=== PATIENT | female | born 2000 | race Caucasian/White ===

== ENCOUNTER 2025-01-22 08:55 | Outpatient (AMB) | payer BC, SELFPAY ==
[2025-01-22 09:14] VITALS: BP 119/78; PULSE 98; RESP 18; TEMP 36.7; O2SAT 98
--- NOTE | 2025-01-22 09:14 | AMB.OBINITIA ---
Vital Signs 01/22/25 09:14 Height 1.6 m Height Method Stated Weight 51.369 kg Weight Measurement Method Standing Scale BMI 20.0 BP 119/78 Blood Pressure Source Automatic Cuff Blood Pressure Location Left Upper Arm Position Sitting Respiration 18 Pulse 98 Pulse Source Monitor Temp 98.1 F Temp Source Oral Pulse Oximetry (%) 98 Oxygen Delivery Method Room Air Allergies/Home Meds Allergies & Medications Allergies No Known Allergies Allergy (Verified 01/22/25 09:16) Medication Reconciliation No Known Home Medications 01/22/25 [History Confirmed 01/22/25] Intake Visit Data Collection New Patient or Established: New Patient (never been to [facility]) Reason for Visit:: INITIAL CARE Seen by Clinical Staff ONLY (RN/MA): No Dial Brusher Required: No Do You Feel Safe at Home: Yes Authorities Contacted: N/A PCP or OBGYN visit in last 3 months: Yes Hx Now: Yes Are you currently on any form of Control: No Last menstrual period: 08/10/24 Pain Present Currently: No Pain Scale Used: Coello-Garcia/Numerical Pain scale:: 0 Smoking Status Smoking Status: Never smoker Questionnaires Covid-19 Vaccine Questionnaire Has patient been vacinated for Covid-19 Have you been vacinated for Covid-19: No PHQ-9 PHQ-2 Over the last 2 weeks, how often have you been bothered by any of the following problems? 1. Little interest or pleasure in doing things: not at all 2. Feeling down, depressed, or hopeless: not at all Total score: 0 PHQ-9 3. Trouble falling or staying asleep, or sleeping too much: Not at all 4. Feeling tired or having little energy: Not at all 5. Poor appetite or overeating: Not at all 6. Feeling bad about yourself - or that you are a failure or have let yourself or your family down: Not at all 7. Trouble concentrating on things, such as reading the newspaper or watching television: Not at all 8. Moving or speaking so slowly that other people could have noticed? - Or the opposite - being so fidgety or restless that you have been moving around a lot more than usual: not at all 9. Thoughts that you would be better off or of hurting yourself in some way: Not at all Total score: 0 Source: Developed by Drs. Joseph Li, Sintia Navarrete, Kevin Ugalde and colleagues, with an educational roger from [employer]. Depression screen completed yes Social History Living Situation History Lives With: Family Housing: House Tobacco History Smoking Status: Never smoker Second Hand Smoke Exposure: No Alcohol History Alcohol Intake: Never Domestic Abuse History Do You Feel Safe at Home: Yes History of Present Illness HPI Narrative 24-year-old 3 para 2 for OBI. Patient's last period was August 06, 2024. EDC is 6 May 13, 2025. Patient is sure of her dates. Patient has had 2 live births. Both of uncomplicated. Her biggest baby weighed 8 pounds 14 at 38 weeks. Denies social habits. Denies surgery. Denies chronic illness. Patient reports good movement. Denies leaking, bleeding, cramps. Her and the father of the baby are happy. No interval complaints or discomforts at this time. OB Initial Visit OB Flowsheet OB Flowsheet Initial Weight: Not Recorded Date <del>?</del> EGA Weight BP Alb Glu CTX Pres Fundal ht FHR Mov Dilation Station Effacement Hx Notes Visit Note 01/22/25 <del>?</del> 24w 1d 51.369 kg 119/78 absent unknown 24 145 active 24-year-old 3 para 2 for OBI. Last period August 06, 2024. EDC May 13, 2025. Patient denies complaints of labor. Denies leaking, denies bleeding, denies contractions. Patient is taking vitamins. OB panel today with hemoglobin A1c and third trimester labs. Schedule with Dr. Titus for anatomy scan. Continue prenatals. Discussed labor precautions. Increase fluids. Return in 4 weeks OB OB panel today with hemoglobin A1c and third trimester labs. Schedule with Dr. Titus for anatomy scan. Continue prenatals. Discussed labor precautions. Increase fluids. Return in 4 weeks OB, NIPT and carrier screen Menstrual History Menstrual reliability: definite Flow: normal Menstrual regularity: regular Monthly: Yes Age at menarche: 12 On control pills at conception: No Associated symptoms (LMP): Reports nausea, vomiting, fatigue and breast tenderness OB History : 1 Infection History & Risk Evaluation History of STDs: none Genetic Screening & History Genetic Screening/Teratology Counseling - Includes patient, baby's father, or anyone in either family with: 1. Patient's age 35 years or older as of estimated date of delivery: No 2. Thalassemia (Luxembourger, Romanian, Mediterranean, or Background); MCV less than 80: No 3. Neural Tube Defect (Meningomyelocele, Spina Bifida, or Anencephaly): No 4. Congenital Heart Defect: No 5. Down Syndrome: No 6. Edison-Sachs (Ashkenazi Latter-Day, Cajun, Finnish Uruguayan): No 7. Carrie Disease (Ashkenazi Latter-Day): No 8. Familial Dysautonomia (Ashkenazi Latter-Day): No 9. Sickle Cell Disease or Trait (): No 10. Hemophilia or other blood disorders: No 11. Muscular Dystrophy: No 12. Cystic Fibrosis: No 13. Coamo's Chorea: No 14. Mental Retardation/Autism: No 15. Other inherited genetic or chromosomal disorder: No 16. Maternal Metabolic Disorder (EG,TYPE 1 Diabetes, PKU): No 17. Patient or baby's father had a child with defects not listed above: No 18. Recurrent loss or a stillbirth: No 19. Medications (including supplements, vitamins, herbs or otc drugs)/illicit/recreational drugs/alcohol since last menstrual period: No 20. Any other: No Infection History 1. Live with someone with TB or exposed to TB: No 2. Rash or viral illness since last menstrual period: No 3. Hepatitis B,C: No Other (see comments) Source: [employer] Review of Systems Review of Systems Systems Reviewed: All systems reviewed, normal except as documented Constitutional Constitutional: Reports fatigue Gastrointestinal Gastrointestinal: Reports nausea and Reports vomiting Endocrine Endocrine: Reports fatigue Exam General Limitations: no limitations General Appearance: alert, in no apparent distress, comfortable, cooperative, healthy appearing, well developed and well groomed Head Head exam: atraumatic, normocephalic and normal inspection Chest Chest inspection: Present normal inspection and symmetric chest wall rise Resp Respiratory exam: Present normal lung sounds bilaterally Card Cardiovascular exam: Present regular rate, normal rhythm and normal heart sounds Abdominal Abdominal exam: Present soft and normal bowel sounds Psych Psychiatric exam: Present normal affect and normal mood Office Procedures OB Clinic LOC & Office Proc's Nursing/Assessment Patient Status: Initial/New Patient OB Clinic Nursing Assessment: Medication Reconciliation, Update PMH in EMR and Vital Signs OB Clinic Coordination of Care: Complex Care and Chronic Disease 1-5, Consent,records obtained, informed consent, Education Simp Pt/Fam, Lab and Imaging orders, Results/Orders obtained and Staff clarify orders Special Needs: Heart tones New Patient Charge New Patient Point Assignment: [id number] New Patient Point Charge: SUPERVISOR [employer] Level 4 ([id number]) Assessment & Plan Diagnosis / Problem List (1) Encounter for supervision of high risk in second trimester, antepartum: Status: Acute Plan Continue vitamins. OB panel with hemoglobin A1c, NIPT and carrier screens and 1 hour GTT today. Schedule with Dr. Titus for anatomy scan. Discussed labor precautions. Increase fluids. Return in 4 weeks OB check Additional Plan Follow Up: 4 Weeks (obc)
== END 2025-01-22 09:45 | disposition home or self-care (01) ==
LOC: HODSOBC 08:55
PROVIDERS: Supervising Provider Advanced Practice Midwife; Visit Provider Advanced Practice Midwife
DX: O09.92 Supervision of high risk pregnancy, unspecified, second trimester (principal); Z3A.24 24 weeks gestation of pregnancy
CPT/HCPCS: 99204; G0463

== ENCOUNTER 2025-02-19 08:53 | Outpatient (AMB) | payer BC, SELFPAY ==
[2025-02-19 09:08] VITALS: BP 110/70; PULSE 77; RESP 16; TEMP 36.7; O2SAT 98; BMI 20.9
--- NOTE | 2025-02-19 09:08 | AMB.OBVISIT ---
Vital Signs 02/19/25 09:08 Height 1.6 m Height Method Stated Weight 53.694 kg Weight Measurement Method Standing Scale BMI 20.9 BP 110/70 Blood Pressure Source Automatic Cuff Blood Pressure Location Left Upper Arm Position Sitting Respiration 16 Pulse 77 Pulse Source Monitor Temp 98.1 F Temp Source Oral Pulse Oximetry (%) 98 Oxygen Delivery Method Room Air Allergies/Home Meds Allergies & Medications Allergies No Known Allergies Allergy (Verified 02/19/25 09:09) Medication Reconciliation No Known Home Medications 01/22/25 [History Confirmed 02/19/25] Intake Visit Data Collection New Patient or Established: Established Patient (seen at [facility] within 3 years) Reason for Visit:: CARE Seen by Clinical Staff ONLY (RN/MA): No Boarding House Manager Required: No Do You Feel Safe at Home: Yes Authorities Contacted: N/A PCP or OBGYN visit in last 3 months: Yes Hx Now: Yes Are you currently on any form of Control: No Pain Present Currently: No Pain Scale Used: Coello-Garcia/Numerical Pain scale:: 0 Smoking Status Smoking Status: Never smoker Questionnaires Covid-19 Vaccine Questionnaire Has patient been vacinated for Covid-19 Have you been vacinated for Covid-19: No PHQ-9 PHQ-2 Over the last 2 weeks, how often have you been bothered by any of the following problems? 1. Little interest or pleasure in doing things: not at all 2. Feeling down, depressed, or hopeless: not at all Total score: 0 PHQ-9 3. Trouble falling or staying asleep, or sleeping too much: Not at all 4. Feeling tired or having little energy: Not at all 5. Poor appetite or overeating: Not at all 6. Feeling bad about yourself - or that you are a failure or have let yourself or your family down: Not at all 7. Trouble concentrating on things, such as reading the newspaper or watching television: Not at all 8. Moving or speaking so slowly that other people could have noticed? - Or the opposite - being so fidgety or restless that you have been moving around a lot more than usual: not at all 9. Thoughts that you would be better off or of hurting yourself in some way: Not at all Total score: 0 Source: Developed by Drs. Joseph Li, Sintia Navarrete, Kevin Ugalde and colleagues, with an educational roger from [employer]. Depression screen completed yes Social History Living Situation History Lives With: Family Housing: House Tobacco History Smoking Status: Never smoker Second Hand Smoke Exposure: No Alcohol History Alcohol Intake: Never Domestic Abuse History Do You Feel Safe at Home: Yes Care OB Visit Log OB Flowsheet Initial Weight: Not Recorded Date <del>?</del> EGA Weight BP Alb Glu CTX Pres Fundal ht FHR Mov Dilation Station Effacement Hx Notes Visit Note 01/22/25 <del>?</del> 24w 1d 51.369 kg 119/78 absent unknown 24 145 active 24-year-old 3 para 2 for OBI. Last period August 06, 2024. EDC May 13, 2025. Patient denies complaints of labor. Denies leaking, denies bleeding, denies contractions. Patient is taking vitamins. OB panel today with hemoglobin A1c and third trimester labs. Schedule with Dr. Titus for anatomy scan. Continue prenatals. Discussed labor precautions. Increase fluids. Return in 4 weeks OB OB panel today with hemoglobin A1c and third trimester labs. Schedule with Dr. Titus for anatomy scan. Continue prenatals. Discussed labor precautions. Increase fluids. Return in 4 weeks OB, NIPT and carrier screen 02/19/25 <del>?</del> 28w 1d 53.694 kg 110/70 absent unknown 27 145 active Reports good movement. Denies leaking, bleeding, contractions. Maternal- medicine sono is pending. No OB complaints Continue follow-up with maternal- medicine. Discussed labs and normal GTT. Patient is aware that she is having a girl. Discussed labor precautions. Return in 3 weeks OB ARASH Calculator Estimated Delivery Date Method Current WG Current Estimate 05/13/25 LMP (Certain) 28w 1d Notes Visit Date: 02/19/25 Last Updated by: Ida Nielsen CNM 02/05: O+,abs-, rpr;;nr, rub imm, hbsag-, hiv-., HC-, GC/Ct12/26105, NIPT-/wjmwMJT-RM-Q3: 4.7, 1 hr gtt: 122 Visit Date: 01/22/25 Last Updated by: Ida Nielsen, ALESSANDRO 24 yo . LMP: 08/06/24. EDC: 05/13/25 Office Procedures OBC Clinic LOC & Office Proc's Nursing/Assessment Patient Status: Established Patient OB Clinic Nursing Assessment: Medication Reconciliation, Update PMH in EMR and Vital Signs OB Clinic Coordination of Care: Complex Care and Chronic Disease 1-5, Consent,records obtained, informed consent, Education Simp Pt/Fam, 1 Ins Authorization, Lab and Imaging orders, Results/Orders obtained and Staff clarify orders Special Needs: Heart tones Established Patient Charge Established Patient Point Assignment: 150 Established Patient Point Charge: EP Level 4 (120-155) Assessment & Plan Diagnosis / Problem List (1) Encounter for supervision of high risk in third trimester, antepartum: Status: Acute Plan Discussed labor precautions. Follow-up on [facility] sono. Continue prenatals. Increase fluids. Return in 3 weeks OB check Additional Plan Follow Up: 3 Weeks (obc)
== END 2025-02-19 09:28 | disposition home or self-care (01) ==
PROVIDERS: Supervising Provider Advanced Practice Midwife; Visit Provider Advanced Practice Midwife
DX: O09.93 Supervision of high risk pregnancy, unspecified, third trimester (principal); Z3A.28 28 weeks gestation of pregnancy
CPT/HCPCS: 99214; G0463

== ENCOUNTER 2025-02-23 15:52 | Observation (INO) | payer BC, SELFPAY ==
[2025-02-23] VITALS (28 sets, daily range): BP systolic 113–124; BP diastolic 57–76; PULSE 95–110; RESP 19–99; TEMP 36.8; O2SAT 82–100; BMI 20.4
[2025-02-23 17:23] LABS: FFN Specimen Descripton Clr Colrless Aqueous; Fetal Fibronectin Negative (Negative)
[2025-02-23] MEDS: ACETAMINOPHEN 325 MG TABLET 650 MG PO (18:14)
[2025-02-23 18:18] LABS: Collection Type, Urine Clean Catch
[2025-02-23 18:32] LABS: Bilirubin,Urine Negative (Negative); Blood,Urine 1+ (Negative); Budding Yeast,Urine Present; Clarity,Urine Clear (Clear/Hazy); Color,Urine Lt-Yellow (Lt Yel-Yel); Glucose, Urine Negative (Negative); Ketones,Urine Negative (Negative); Leukocyte Esterase,Urine Negative (Negative); Nitrite,Urine Negative (Negative); PH,Urine 6.5 (5.0-7.0); Protein,Urine Negative (Neg - Trace); RBC,Urine 52 /hpf (0-3); Specific Gravity,Urine 1.014 (1.001-1.035); Squamous Epithelial Cell,Urine < 1 /hpf (0-5); Urobilinogen,Urine Negative mg/dL (0.0-1.0); WBC,Urine 2 /hpf (0-5)
== END 2025-02-23 18:54 | disposition home or self-care (01) ==
PROVIDERS: Admitting Provider Obstetrics & Gynecology; PCP Family Medicine; Visit Provider Obstetrics & Gynecology
DX: O26.893 Other specified pregnancy related conditions, third trimester (principal); Z3A.29 29 weeks gestation of pregnancy; R52 Pain, unspecified
CPT/HCPCS: 59025; 59899; 81001; 82731; A9270

== ENCOUNTER 2025-03-05 14:50 | Outpatient (AMB) | payer BC, SELFPAY ==
[2025-03-05 14:57] VITALS: BP 103/66; PULSE 93; RESP 18; TEMP 36.4; O2SAT 98; BMI 20.5
--- NOTE | 2025-03-05 14:57 | OBCLNT_ITS ---
Vital Signs 03/05/25 14:57 Height 1.63 m Height Method Stated Weight 54.148 kg Weight Measurement Method Standing Scale BMI 20.5 BP 103/66 Blood Pressure Source Automatic Cuff Blood Pressure Location Left Upper Arm Position Sitting Respiration 18 Pulse 93 Pulse Source Monitor Temp 97.6 F Temp Source Oral Pulse Oximetry (%) 98 Oxygen Delivery Method Room Air Allergies/Home Meds Allergies & Medications Allergies No Known Allergies Allergy (Verified 03/05/25 14:59) Medication Reconciliation clotrimazole 1 % vaginal cream (Gyne-Lotrimin 7) 1 applic .Route QHSPRN #45 grams 02/24/25 [Rx Confirmed 03/05/25] Intake Visit Data Collection New Patient or Established: Established Patient (seen at [facility] within 3 years) Reason for Visit:: CARE Seen by Clinical Staff ONLY (RN/MA): No Cold Rolling Supervisor Required: No Do You Feel Safe at Home: Yes Authorities Contacted: N/A PCP or OBGYN visit in last 3 months: Yes Hx Now: Yes Are you currently on any form of Control: No Pain Present Currently: No Pain Scale Used: Coello-Garcia/Numerical Pain scale:: 0 Smoking Status Smoking Status: Never smoker Immunizations Flu Vaccine in the Last 12 Months: No Flu Vaccine Exclusion Criteria: Refused by Patient Questionnaires Covid-19 Vaccine Questionnaire Has patient been vacinated for Covid-19 Have you been vacinated for Covid-19: No PHQ-9 PHQ-2 Over the last 2 weeks, how often have you been bothered by any of the following problems? 1. Little interest or pleasure in doing things: not at all 2. Feeling down, depressed, or hopeless: not at all Total score: 0 PHQ-9 3. Trouble falling or staying asleep, or sleeping too much: Not at all 4. Feeling tired or having little energy: Not at all 5. Poor appetite or overeating: Not at all 6. Feeling bad about yourself - or that you are a failure or have let yourself or your family down: Not at all 7. Trouble concentrating on things, such as reading the newspaper or watching television: Not at all 8. Moving or speaking so slowly that other people could have noticed? - Or the opposite - being so fidgety or restless that you have been moving around a lot more than usual: not at all 9. Thoughts that you would be better off or of hurting yourself in some way: Not at all Total score: 0 Source: Developed by Drs. Joseph Li, Sintia Navarrete, Kevin Ugalde and colleagues, with an educational roger from [employer]. Depression screen completed yes Social History Living Situation History Lives With: Family Housing: House Tobacco History Smoking Status: Never smoker Second Hand Smoke Exposure: No Alcohol History Alcohol Intake: Never Domestic Abuse History Do You Feel Safe at Home: Yes Care OB Visit Log OB Flowsheet Initial Weight: Not Recorded Date -?-?-?-?-?-?-?-?-?-?-?-?- EGA Weight BP Alb Glu CTX Pres Fundal ht FHR Mov Dilation Station Effaceme nt Hx Notes Visit Note 01/22/25 -?-?-?-?-?-?-?-?-?-?-?-?- 24w 1d 51.369 kg 119/78 absent unknown 24 145 active 24-year-old 3 para 2 for OBI. Last period August 06, 2024. EDC May 13, 2025. Patient denies complaints of labor. Denies leaking, denies bleeding, denies contractions. Patient is taking vitamins. OB panel today with hemoglobin A1c and third trimester labs. Schedule with Dr. Titus for anatomy scan. Continue prenatals. Discussed labor precautions. Increase fluids. Return in 4 weeks OB OB panel today with hemoglob in A1c and third trimester labs. Schedule with Dr. Titus for anatomy scan. Continue prenatals. Discussed labor precautions. Increase fluids. Return in 4 weeks OB, NIPT and carrier screen 02/19/25 -?-?-?-?-?-?-?-?-?-?-?-?- 28w 1d 53.694 kg 110/70 absent unknown 27 145 active Reports good movement. Denies leaking, bleeding, contractions. Maternal- medicine sono is pending. No OB complaints Co ntinue follow-up with maternal- medicine. Discussed labs and normal GTT. Patient is aware that she is having a girl. Discussed labor precautions. Return in 3 weeks OB 03/05/25 -?-?-?-?-?-?-?-?-?-?-?-?- 30w 1d 54.148 kg 103/66 absent unknown 29 135 active Reports good movement. Denies leaking, bleeding, cramps Unable to get ultrasound with maternal- medicine due to insurance. Patient will schedule appointment at [facility] for ultrasound. Declined Tdap and flu today. Discussed labor precautions. Return in 2 weeks OB check ARASH Calculator Estimated Delivery Date Method Current WG Current Estimate 05/13/25 LMP (Certain) 30w 1d Notes Visit Date: 02/19/25 Last Updated by: Ida Nielsen CNM 02/05: O+,abs-, rpr;;nr, rub imm, hbsag-, hiv-., HC-, GC/Ct12/53042, NIPT-/bgdaVJH-PQ-X3: 4.7, 1 hr gtt: 122 Visit Date: 01/22/25 Last Updated by: Ida Nielsen CNM 24 yo . LMP: 08/06/24. EDC: 05/13/25 Office Procedures OBC Clinic LOC & Office Proc's Nursing/Assessment Patient Status: Established Patient OB Clinic Nursing Assessment: Medication Reconciliation, Update PMH in EMR and Vital Signs OB Clinic Coordination of Care: Complex Care and Chronic Disease 1-5, Consent,records obtained, informed consent, Education Simp Pt/Fam, Lab and Imaging orders, Results/Orders obtained and Staff clarify orders Special Needs: Heart tones Established Patient Charge Established Patient Point Assignment: 135 Established Patient Point Charge: EP Level 4 (120-155) Assessment & Plan Diagnosis / Problem List (1) Encounter for supervision of high risk in third trimester, antepartum: Status: Acute Plan Declined Tdap and flu. Discussed labor precautions. Schedule appointment at [facility] imaging. Return in 2 weeks OB to. Additional Plan Follow Up: 2 Weeks (obc)
== END 2025-03-05 15:19 | disposition home or self-care (01) ==
LOC: HODSOBC 14:50
PROVIDERS: Supervising Provider Advanced Practice Midwife; Visit Provider Advanced Practice Midwife
DX: O09.93 Supervision of high risk pregnancy, unspecified, third trimester (principal); Z3A.30 30 weeks gestation of pregnancy; Z28.21 Immunization not carried out because of patient refusal
CPT/HCPCS: 99214; G0463

== ENCOUNTER 2025-03-26 14:45 | Outpatient (AMB) | payer BC, SELFPAY ==
[2025-03-26 14:59] VITALS: BP 114/67; PULSE 102; RESP 18; TEMP 36.2; O2SAT 98; BMI 20.8
--- NOTE | 2025-03-26 14:59 | OBCLNT_ITS ---
Vital Signs 03/26/25 14:59 Height 1.63 m Height Method Stated Weight 55.338 kg Weight Measurement Method Standing Scale BMI 20.8 BP 114/67 Blood Pressure Source Automatic Cuff Blood Pressure Location Left Upper Arm Position Sitting Respiration 18 Pulse 102 H Pulse Source Monitor Temp 97.2 F Temp Source Oral Pulse Oximetry (%) 98 Oxygen Delivery Method Room Air Allergies/Home Meds Allergies & Medications Allergies No Known Allergies Allergy (Verified 03/26/25 15:00) Medication Reconciliation clotrimazole 1 % vaginal cream (Gyne-Lotrimin 7) 1 applic .Route QHSPRN #45 grams 02/24/25 [Rx Confirmed 03/26/25] Immunizations Immunizations Flu Vaccine in the Last 12 Months: No Flu Vaccine Exclusion Criteria: No Exclusion Criteria Care OB Visit Log OB Flowsheet Initial Weight: Not Recorded Date -?-?-?-?-?-?-?-?-?-?-?-?- EGA Weight BP Alb Glu CTX Pres Fundal ht FHR Mov Dilation Station Effacement Hx Notes Visit Note 01/22/25 -?-?-?-?-?-?-?-?-?-?-?-?- 24w 1d 51.369 kg 119/78 absent unknown 24 145 active 24-year-old 3 para 2 for OBI. Last period August 06, 2024. EDC May 13, 2025. Patient denies complaints of labor. Denies leaking, denies bleeding, denies contractions. Patient is taking vitamins. OB panel today with hemoglobin A1c and third trimester labs. Schedule with Dr. Titus for anatomy scan. Continue prenatals. Discussed labor precautions. Increase fluids. Return in 4 weeks OB OB panel today with hemoglob in A1c and third trimester labs. Schedule with Dr. Titus for anatomy scan. Continue prenatals. Discussed labor precautions. Increase fluids. Return in 4 weeks OB, NIPT and carrier screen 02/19/25 -?-?-?-?-?-?-?-?-?-?-?-?- 28w 1d 53.694 kg 110/70 absent unknown 27 145 active Reports good movement. Denies leaking, bleeding, contractions. Maternal- medicine sono is pending. No OB complaints Co ntinue follow-up with maternal- medicine. Discussed labs and normal GTT. Patient is aware that she is having a girl. Discussed labor precautions. Return in 3 weeks OB 03/05/25 -?-?-?-?-?-?-?-?-?-?-?-?- 30w 1d 54.148 kg 103/66 absent unknown 29 135 active Reports good movement. Denies leaking, bleeding, cramps Unable to get ultrasound with maternal- medicine due to insurance. Patient will schedule appointment at [facility] for ultrasound. Declined Tdap and flu today. Discussed labor precautions. Return in 2 weeks OB check 03/26/25 -?-?-?-?-?-?-?-?-?-?-?-?- 33w 1d 55.338 kg 114/67 absent unknown 32 140 active She reports good movement. Denies leaking, bleeding, contractions. Ultrasound was done at [facility] Call for [facility] nty results. Discussed labor precautions. Kick count twice a day. Return in 2 weeks OB check ARASH Calculator Estimated Delivery Date Method Current WG Current Estimate 05/13/25 LMP (Certain) 33w 1d Other Estimates 05/05/25 Ultrasound #1 34w 2d 05/13/25 Manual 33w 1d final arash: . EFW:45% Notes Visit Date: 02/19/25 Last Updated by: Ida Nielsen CNM 02/05: O+,abs-, rpr;;nr, rub imm, hbsag-, hiv-., HC-, GC/Ct12/02741, NIPT-/zwvaAXE-TL-P6: 4.7, 1 hr gtt: 122 Visit Date: 01/22/25 Last Updated by: Ida Nielsen CNM 24 yo . LMP: 08/06/24. EDC: 05/13/25 Office Procedures OBC Clinic LOC & Office Proc's Nursing/Assessment Patient Status: Established Patient OB Clinic Nursing Assessment: Medication Reconciliation, Update PMH in EMR and Vital Signs OB Clinic Coordination of Care: Consent,records obtained, informed consent, Education Simp Pt/Fam, Lab and Imaging orders, Results/Orders obtained and Staff clarify orders Special Needs: Heart tones Established Patient Charge Established Patient Point Assignment: 110 Established Patient Point Charge: EP Level 3 (80-115) Assessment & Plan Diagnosis / Problem List (1) Encounter for supervision of high risk in third trimester, antepartum: Status: Acute Plan Discussed labor precautions. Kick count twice a day. Call for sono results. Return in 2 weeks OB check Additional Plan Follow Up: 2 Weeks (obc)
== END 2025-03-26 15:17 | disposition home or self-care (01) ==
LOC: HODSOBC 14:45
PROVIDERS: Supervising Provider Advanced Practice Midwife; Visit Provider Advanced Practice Midwife
DX: O09.93 Supervision of high risk pregnancy, unspecified, third trimester (principal); Z3A.33 33 weeks gestation of pregnancy
CPT/HCPCS: 99213; G0463

== ENCOUNTER 2025-04-05 05:58 | Observation (INO) | payer BC, SELFPAY ==
[2025-04-05] VITALS (10 sets, daily range): BP systolic 94; BP diastolic 52–54; PULSE 100–118; RESP 16–100; TEMP 36.7; O2SAT 97–99; BMI 21.8
== END 2025-04-05 07:05 | disposition home or self-care (01) ==
PROVIDERS: Admitting Provider Obstetrics & Gynecology; Visit Provider Obstetrics & Gynecology
DX: Z34.90 Encounter for supervision of normal pregnancy, unspecified, unspecified trimester (principal); Z3A.00 Weeks of gestation of pregnancy not specified
CPT/HCPCS: 59025; 59899

== ENCOUNTER 2025-04-07 11:10 | Observation (INO) | payer BC, SELFPAY ==
[2025-04-07 11:25] VITALS: BP 112/67; PULSE 110
[2025-04-07 11:35] LABS: Collection Type, Urine Clean Catch
[2025-04-07 11:59] VITALS: BP 112/67; PULSE 100; RESP 18; RESP 99; TEMP 36.7; BMI 20.9
[2025-04-07 12:30] LABS: Bacteria,Urine Rare; Bilirubin,Urine Negative (Negative); Blood,Urine Negative (Negative); Clarity,Urine Clear (Clear/Hazy); Color,Urine Lt-Yellow (Lt Yel-Yel); Glucose, Urine Negative (Negative); Ketones,Urine 2+ (Negative); Leukocyte Esterase,Urine Negative (Negative); Nitrite,Urine Negative (Negative); PH,Urine 7.0 (5.0-7.0); Protein,Urine Negative (Neg - Trace); RBC,Urine 1 /hpf (0-3); Specific Gravity,Urine 1.010 (1.001-1.035); Squamous Epithelial Cell,Urine 5 /hpf (0-5); Urobilinogen,Urine Negative mg/dL (0.0-1.0); WBC,Urine 1 /hpf (0-5)
[2025-04-07] MEDS: BETAMET ACET/BETAMET NA PH (Celestone) 6 MG/ML VIAL 12 MG IM (12:51)
== END 2025-04-07 12:55 | disposition home or self-care (01) ==
PROVIDERS: Admitting Provider Obstetrics & Gynecology; Visit Provider Obstetrics & Gynecology
DX: O26.893 Other specified pregnancy related conditions, third trimester (principal); M54.50 Low back pain, unspecified; R10.30 Lower abdominal pain, unspecified; Z3A.35 35 weeks gestation of pregnancy
CPT/HCPCS: 59025; 59899; 81001; 96372; J0702

== ENCOUNTER 2025-04-09 13:04 | Outpatient (AMB) | payer BC, SELFPAY ==
--- NOTE | 2025-04-09 13:28 | AMB.OBPNC ---
Vital Signs 04/09/25 13:29 Height 1.63 m Height Method Stated Weight 55.962 kg Weight Measurement Method Standing Scale BMI 21.0 BP 109/67 Blood Pressure Source Automatic Cuff Blood Pressure Location Left Upper Arm Position Sitting Respiration 18 Pulse 117 H Pulse Source Monitor Temp 98.2 F Temp Source Oral Pulse Oximetry (%) 98 Oxygen Delivery Method Room Air Allergies/Home Meds Allergies & Medications Allergies No Known Allergies Allergy (Verified 04/09/25 13:29) Medication Reconciliation vits no.130-ferrous fum 27 mg iron-folic acid 800 mcg tablet ( Vitamin) 1 tab PO QDAY 04/05/25 [History Confirmed 04/09/25] Immunizations Immunizations Flu Vaccine in the Last 12 Months: Yes Flu Vaccine Exclusion Criteria: Already Received Care OB Visit Log OB Flowsheet Initial Weight: Not Recorded Date <del>?</del> EGA Weight BP Alb Glu CTX Pres Fundal ht FHR Mov Dilation Station Effacement Hx Notes Visit Note 01/22/25 <del>?</del> 24w 1d 51.369 kg 119/78 absent unknown 24 145 active 24-year-old 3 para 2 for OBI. Last period August 06, 2024. EDC May 13, 2025. Patient denies complaints of labor. Denies leaking, denies bleeding, denies contractions. Patient is taking vitamins. OB panel today with hemoglobin A1c and third trimester labs. Schedule with Dr. Titus for anatomy scan. Continue prenatals. Discussed labor precautions. Increase fluids. Return in 4 weeks OB OB panel today with hemoglobin A1c and third trimester labs. Schedule with Dr. Titus for anatomy scan. Continue prenatals. Discussed labor precautions. Increase fluids. Return in 4 weeks OB, NIPT and carrier screen 02/19/25 <del>?</del> 28w 1d 53.694 kg 110/70 absent unknown 27 145 active Reports good movement. Denies leaking, bleeding, contractions. Maternal- medicine sono is pending. No OB complaints Continue follow-up with maternal- medicine. Discussed labs and normal GTT. Patient is aware that she is having a girl. Discussed labor precautions. Return in 3 weeks OB 03/05/25 <del>?</del> 30w 1d 54.148 kg 103/66 absent unknown 29 135 active Reports good movement. Denies leaking, bleeding, cramps Unable to get ultrasound with maternal- medicine due to insurance. Patient will schedule appointment at [facility] for ultrasound. Declined Tdap and flu today. Discussed labor precautions. Return in 2 weeks OB check 03/26/25 <del>?</del> 33w 1d 55.338 kg 114/67 absent unknown 32 140 active She reports good movement. Denies leaking, bleeding, contractions. Ultrasound was done at [facility] Call for [facility] results. Discussed labor precautions. Kick count twice a day. Return in 2 weeks OB check 04/09/25 <del>?</del> 35w 1d 55.962 kg 109/67 absent cephalic 35 145 active Reports good movement. Denies contractions. Patient has had severe bilateral pain in both kidneys that radiates to her lower pelvic area for 4 days. Patient has been to the ER twice and up in labor and delivery. And then she went to a walk-in where she had labs and blood drawn. The family practice doctor walking treated for UTI with Keflex and also an IV for hydration and IV antibiotics and sent her home. Patient states she is feeling better now. She previously was treated with Flagyl 500 3 times daily for 5 days. And also Tylenol for discomfort. NuSwab today with her GBS culture. Schedule bilateral kidney ultrasounds here at [facility]. Increase fluids and discussed comfort measures Tylenol as needed. Kick count twice a day. And heat and return in a week OB check ARASH Calculator Estimated Delivery Date Method Current WG Current Estimate 05/13/25 LMP (Certain) 35w 1d Other Estimates 05/05/25 Ultrasound #1 36w 2d 05/13/25 Manual 35w 1d final arash: 05/13/25. EFW:45% Notes Visit Date: 02/19/25 Last Updated by: Ida Nielsen CNM 02/05: O+,abs-, rpr;;nr, rub imm, hbsag-, hiv-., HC-, GC/Ct12/89897, NIPT-/ahcnJSZ-CW-O6: 4.7, 1 hr gtt: 122 Visit Date: 01/22/25 Last Updated by: Ida Nielsen CNM 24 yo . LMP: 08/06/24. EDC: 05/13/25 Office Procedures OBC Clinic LOC & Office Proc's Nursing/Assessment Patient Status: Established Patient OB Clinic Nursing Assessment: Medication Reconciliation, Update PMH in EMR and Vital Signs OB Clinic Coordination of Care: Complex Care and Chronic Disease 1-5, Consent,records obtained, informed consent, Education Simp Pt/Fam, 1 Ins Authorization, Lab and Imaging orders, Results/Orders obtained and Staff clarify orders Special Needs: Heart tones Miscellaneous Interventions: Culture Specimen Collection Established Patient Charge Established Patient Point Assignment: 165 Established Patient Point Charge: EP Level 5 (160-above) Assessment & Plan Diagnosis / Problem List (1) Renal calculi: Status: Acute (2) Encounter for supervision of high risk in third trimester, antepartum: Status: Acute (3) Vaginitis affecting in first trimester, antepartum: Plan NuSwab plus. GBS culture. Bilateral kidney ultrasound. Tylenol for discomfort. We discussed comfort measures. Complete Keflex as directed. Increase fluids. Kick count. And return in 2 weeks for OB check Additional Plan Follow Up: 2 Weeks (obc)
[2025-04-09 13:29] VITALS: BP 109/67; PULSE 117; RESP 18; TEMP 36.8; O2SAT 98; BMI 21.0
== END 2025-04-09 14:00 | disposition home or self-care (01) ==
LOC: HODSOBC 13:04
PROVIDERS: Supervising Provider Advanced Practice Midwife; Visit Provider Advanced Practice Midwife
DX: O09.893 Supervision of other high risk pregnancies, third trimester (principal); O99.891 Other specified diseases and conditions complicating pregnancy; N20.0 Calculus of kidney; O23.593 Infection of other part of genital tract in pregnancy, third trimester; N76.0 Acute vaginitis; Z3A.35 35 weeks gestation of pregnancy
CPT/HCPCS: 99215; G0463

== ENCOUNTER 2025-05-04 16:10 | Inpatient (IN) | payer BC, SELFPAY ==
[2025-05-04] VITALS (64 sets, daily range): BP systolic 91–133; BP diastolic 51–83; PULSE 72–131; RESP 17–99; TEMP 36.9–37; O2SAT 98–100; BMI 23.0
[2025-05-04 18:34] LABS: Basophils # (Auto) 0.0 Thou/mm3 (0.0-0.2); Basophils % (Auto) 0 % (0-2.5); Eosinophils # (Auto) 0.1 Thou/mm3 (0.0-0.5); Eosinophils % (Auto) 1 % (0-10); Hematocrit 33.2 % (36.0-46.0); Hemoglobin 11.0 g/dL (12.0-16.0); Immature Granulocytes Auto 0.07 Thou/mm3 (0.00-0.00); Lymphocytes # (Auto) 2.3 Thou/mm3 (1.0-4.8); Lymphocytes % (Auto) 20 % (10-50); Mean Corpuscular HGB Conc 33.1 g/dl (31.0-37.0); Mean Corpuscular Hemoglobin 27.0 pg (25.0-35.0); Mean Corpuscular Volume 81 fL (80-100); Monocytes # (Auto) 1.2 Thou/mm3 (0.0-0.8); Monocytes % (Auto) 10 % (0-12); Neutrophils # (Auto) 8.3 Thou/mm3 (1.8-7.7); Neutrophils % (Auto) 69 % (37-80); Nucleated Red Blood Cell # 0.00 Thou/mm3 (0.00-0.00); Nucleated Red Blood Cell % 0 /100 WBC (0); Platelet Count 196 Thou/mm3 (140-440); RDW Standard Deviation 40.8 fL (36.4-46.3); Red Blood Count 4.08 Miln/mm3 (4.00-5.20); White Blood Count 12.0 Thou/mm3 (3.6-11.0)
[2025-05-04 18:43] LABS: ROM Swab Mixed By: RN; Rupture of Fetal Membranes Negative (Negative); Swb Mxed in Solvent 1 min? Yes
[2025-05-04] MEDS: Ampicillin Inj 2,000 MG in SODIUM CHLORIDE 0.9% (POP) 100 ML 200 MG IV (19:09)
[2025-05-04] MEDS: RINGERS LACTATED 1000 ML 1,000 ML 100 ML IV ×3 (19:32→21:51)
[2025-05-04 20:03] LABS: Syphilis Nonreactive (Nonreactive)
[2025-05-04 21:02] LABS: Amphetamine/Metham Scrn,Ur OB Negative (Negative); Benzoylecgonine Screen, Ur OB Negative (Negative); Opiate Screen,Urine OB Negative (Negative); THC Screen,Urine OB Negative (Negative)
[2025-05-04] MEDS: Ampicillin Inj 1,000 MG in SODIUM CHLORIDE 0.9% (Popper) 50 ML 50 MG IV (23:09)
[2025-05-04] MEDS: MINERAL OIL 30 ML UDC TOP (23:31)
[2025-05-04] MEDS: OXYTOCIN INJ 10 UNIT/ML VIAL IM (23:36)
[2025-05-04] MEDS: OXYTOCIN in NS 20 units 20 UNIT/1,000 ML BAG 125 UNIT IV (23:37)
[2025-05-04] MEDS: TRANEXAMIC ACID 1,000 MG IVPB 1,000 MG/100 ML BAG 200 MG IV (23:45)
[2025-05-04] MEDS: BENZO/LANO/ALOE (Dermoplast) 60 GM CAN 1 SPRAY TOP (23:48)
--- NOTE | 2025-05-04 23:56 | PD.LDHP ---
Documentation for date of: 05/04/25 OB Labor/Induct. HPI History of Present Illness Chief complaint: labor : 3 Para: 2 Term pregnancies: 2 pregnancies: 0 Living children: 2 History of Abortions: Spontaneous and Elective: 0 History of Vaginal deliveries: 2 History of sections: Yes History of : Yes Date of last menstrual period: 08/06/24 ARASH: 05/13/24 Gestational Age (weeks): 38 Gestational Age (days): 5 Gestational age based on last menstrual period: 38 History of present illness: 24-year-old 3 para 2 at 38 weeks 5 for complaints of contractions starting at 1600. Patient has been followed at [facility] OB clinic for care. First visit at 24 weeks. Last period August 06, 2024. Estimated due date May 13, 2025. Patient denies any existing medical problems. Denies social habits. Denies surgery. Slow positive, antibody screen negative, RPR nonreactive, rubella immune, hepatitis B negative, hep C negative, HIV negative, GC and Chlamydia are negative. She had normal 1 hour. Her GBS is positive. Her NIPT was negative. Carrier screens negative. Denies leaking, bleeding. History of Present Dating criteria: based on 2nd trimester US only Adequate Care: Yes Ultrasounds: normal mid trimester US Obstetrical complications: none Medical complications: none Labs Labs: Positive: Rubella Titre and Group Beta Strep, Negative: RPR, Hepatitis B, HIV, Chlamydia and Gonorrhea and Unknown: Herpes Type 1 and Herpes Type 2 Review of Systems Review of Systems Systems Reviewed: All systems reviewed, normal except as documented Past Medical History Surgical History SURGICAL: Positive Section Meds Home Medications and Allergies Home Medications ?Medication ?Instructions ?Recorded ?Confirmed ?Type vits no.130-ferrous fum 1 tab PO QDAY 04/05/25 04/09/25 History 27 mg iron-folic acid 800 mcg tablet ( Vitamin) Allergies Allergy/AdvReac Type Severity Reaction Status Date / Time No Known Allergies Allergy Verified 04/09/25 13:29 OB Exam Physical Exam Vital signs: Temp Pulse Resp BP Pulse Ox 98.6 F 102 H 17 114/65 100 05/04/25 21:55 05/04/25 23:52 05/04/25 21:55 05/04/25 23:52 05/04/25 23:29 Narrative: Alert and oriented. Normal heart rate and rhythm. Lungs clear no wheezes. Gravid abdomen. Gynecoid pelvis. Estimated weight was 7 pounds 13 ounces. Vaginal exam on admission was 4-5, 70%, -3. Vertex. Bag water intact. heart rate category 1 with accelerations and moderate variability and contractions on admission were about every 2 to 3 minutes Detailed Labor and Delivery Exam Dilation (cm): 4-5 Effacement (%): 70 Cervix position: anterior station: -3 Consistency: soft Presentation: Vertex Cervical ripeness score: 8 Membranes: intact Baseline heart rate: 145 monitor accelerations: 15x15 monitor decelerations: None exterminator helper termite variability: Moderate (11-25) Contraction frequency (min): 2-3 Contraction duration (sec): 40 Tachysystole: No Contraction intensity: Moderate OB Results Labs 05/04/25 18:15 Labs: Short CBC 05/04/25 Range/Units 18:15 WBC 12.0 H (3.6-11.0) Thou/mm3 Hgb 11.0 L (12.0-16.0) g/dL Hct 33.2 L (36.0-46.0) % Plt Count 196 (140-440) Thou/mm3 OB Assessment & Plan Assessment and Plan (1) Normal labor and delivery: Status: Acute Additional Plan Induction method: none Plan: GBS prophylaxis tx and consult MD de leon
[2025-05-05] VITALS (12 sets, daily range): BP systolic 97–115; BP diastolic 50–68; PULSE 78–97; RESP 17–20; TEMP 36.7–36.9; O2SAT 97–98
--- NOTE | 2025-05-05 00:02 | OBDSUM_ITS ---
Data (Fermin) Data Hx Section: Yes : 3 Term: 2 : 0 Livin Abortions: Spontaneous & Theraputic: 0 Delivery Data (Fermin) Labor Data Initiation of labor: Spontaneous Induction/Augmentation Agent: None ROM date: 05/04/25 ROM time: 23:09 Amniotic membrane rupture type: Spontaneous Amniotic fluid description: Clear Delivery Data EDC: 05/13/25 Date of arrival to unit: 05/04/25 Time of arrival to unit: 16:10 Onset of labor date: 05/04/25 Onset of labor time: 18:00 Complete dilation date: 05/04/25 Complete dilation time: 23:00 delivery date: 05/04/25 delivery time: 23:30 Gestational age (weeks): 38 Gestational age (days): 5 Placenta delivery time: 23:35 Stage 1 total time: Labor - Stage 1 Duration 5 hours and 0 minutes Delivered by: Ida Nielsen Delivery nurse: aleksandra Bustos nurse: arturo vallejo rn Visitor Service Assistant at delivery: No Support person(s) at delivery: father of baby, patient mother Delivery Method Delivery method: Normal Vaginal Delivery Presentation: Vertex position: OA Anesthesia Type Anesthesia Type: Epidural Delivery Room Medications Delivery room medications: Pitocin 10 u IM, Pitocin 20 u IV, Cytotec 800 CA and other (txa) Placenta Placenta delivery description: Spontaneous Cord blood sent to lab: Yes cord blood collection: Cord Blood Type Episiotomy Episiotomy description: None Umbilical Cord cord description: 3 Vessels Data (Fermin) Stratford Data order: 1 Stratford's gender: Female weight (gms): 3510 g Weight (pounds): 7 lbs and 11.8 ozs length: 53.34 cm 1 minute: 9 5 minutes: 9
[2025-05-05] MEDS: IBUPROFEN TAB 400 MG TABLET 800 MG PO (00:43)
[2025-05-05] MEDS: DOCUSATE SOD 100 MG CAPSULE PO ×2 (08:22→20:08)
[2025-05-05 09:03] LABS: Basophils # (Auto) 0.0 Thou/mm3 (0.0-0.2); Basophils % (Auto) 0 % (0-2.5); Eosinophils # (Auto) 0.1 Thou/mm3 (0.0-0.5); Eosinophils % (Auto) 1 % (0-10); Hematocrit 29.0 % (36.0-46.0); Hemoglobin 9.6 g/dL (12.0-16.0); Immature Granulocytes Auto 0.08 Thou/mm3 (0.00-0.00); Lymphocytes # (Auto) 2.1 Thou/mm3 (1.0-4.8); Lymphocytes % (Auto) 15 % (10-50); Mean Corpuscular HGB Conc 33.1 g/dl (31.0-37.0); Mean Corpuscular Hemoglobin 27.1 pg (25.0-35.0); Mean Corpuscular Volume 82 fL (80-100); Monocytes # (Auto) 1.2 Thou/mm3 (0.0-0.8); Monocytes % (Auto) 8 % (0-12); Neutrophils # (Auto) 10.6 Thou/mm3 (1.8-7.7); Neutrophils % (Auto) 76 % (37-80); Nucleated Red Blood Cell # 0.00 Thou/mm3 (0.00-0.00); Nucleated Red Blood Cell % 0 /100 WBC (0); Platelet Count 182 Thou/mm3 (140-440); RDW Standard Deviation 41.3 fL (36.4-46.3); Red Blood Count 3.54 Miln/mm3 (4.00-5.20); White Blood Count 14.0 Thou/mm3 (3.6-11.0)
--- NOTE | 2025-05-05 16:12 | PD.LDPPPRG ---
Subjective Subjective Interval history: No complaints of pain. No dizziness. Bonding and breast-feeding Exam Vital Signs Temp Pulse Resp BP Pulse Ox O2 Del Method 98.2 F 84 18 97/62 98 Room Air 05/05/25 15:00 05/05/25 15:00 05/05/25 15:00 05/05/25 15:00 05/05/25 15:00 05/05/25 15:00 Narrative Exam Vital signs are stable afebrile. Breasts are soft. Fundus firm below umbilicus. Perineum intact no swelling. Small lochia. Uterus well involuted. Objective Labs 05/05/25 08:33 Labs: Laboratory Results - last 24 hr 05/04/25 05/04/25 05/04/25 18:15 18:25 20:00 WBC 12.0 H RBC 4.08 Hgb 11.0 L Hct 33.2 L MCV 81 MCH 27.0 MCHC 33.1 RDW Std Deviation 40.8 Plt Count 196 Neut % (Auto) 69 Lymph % (Auto) 20 Tillman % (Auto) 10 Eos % (Auto) 1 Baso % (Auto) 0 Neut # (Auto) 8.3 H Lymph # (Auto) 2.3 Tillman # (Auto) 1.2 H Eos # (Auto) 0.1 Baso # (Auto) 0.0 Immature Gran # (Auto) 0.07 H Absolute Nucleated RBC 0.00 Immature Gran % 1 H Nucleated RBC % 0 Membrane Rupture Negative Urine Opiates Screen Negative U Amphetamin/Meth Scrn Negative U Cocaine Metab Screen Negative U Marijuana (THC) Screen Negative Syphilis Serology Nonreactive Blood Type O Positive Antibody Screen NEGATIVE Blood Bank Wristband ID Yes 05/05/25 08:33 WBC 14.0 H RBC 3.54 L Hgb 9.6 L Hct 29.0 L MCV 82 MCH 27.1 MCHC 33.1 RDW Std Deviation 41.3 Plt Count 182 Neut % (Auto) 76 Lymph % (Auto) 15 Tillman % (Auto) 8 Eos % (Auto) 1 Baso % (Auto) 0 Neut # (Auto) 10.6 H Lymph # (Auto) 2.1 Tillman # (Auto) 1.2 H Eos # (Auto) 0.1 Baso # (Auto) 0.0 Immature Gran # (Auto) 0.08 H Absolute Nucleated RBC 0.00 Immature Gran % 1 H Nucleated RBC % 0 Membrane Rupture Urine Opiates Screen U Amphetamin/Meth Scrn U Cocaine Metab Screen U Marijuana (THC) Screen Syphilis Serology Blood Type Antibody Screen Blood Bank Wristband ID Assessment & Plan Problem List (1) Normal labor and delivery: Status: Acute Assessment Comment Assessment comment: 24 hr pp Plan Comment Plan Comment: Continue vitamins and iron. Tylenol ibuprofen for pain. Discussed danger signs symptoms and ER precautions. And we discussed signs and symptoms of infection. Patient will be discharged home tomorrow in the morning because she delivered late at night Time Spent With Patient Time: Total time spent is greater than 50% in coordination of care (as documented) at patient's floor/unit and/or counseling patient:
--- NOTE | 2025-05-05 23:12 | PC.NURSE ---
Access chart to assist primary nurse.
[2025-05-06 00:35] VITALS: BP 104/64; PULSE 73; RESP 16; TEMP 36.8; O2SAT 96
[2025-05-06 03:46] VITALS: BP 106/67; PULSE 80; RESP 12; TEMP 36.6; O2SAT 97
[2025-05-06 08:00] VITALS: BP 107/67; PULSE 84; RESP 18; TEMP 36.7; O2SAT 98
--- NOTE | 2025-05-06 08:29 | PD.LDPPPRG ---
Subjective Subjective Interval history: No complaints. Ambulating without problems. Bonding. No dizziness. Exam Vital Signs Temp Pulse Resp BP Pulse Ox O2 Del Method 97.9 F 80 12 106/67 97 Room Air 05/06/25 03:46 05/06/25 03:46 05/06/25 03:46 05/06/25 03:46 05/06/25 03:46 05/06/25 03:46 Narrative Exam Vital signs stable afebrile. Breast is soft. Fundus firm below the umbilicus. Perineum intact. Small lochia. Uterus Objective Labs 05/05/25 08:33 Labs: Laboratory Results - last 24 hr 05/05/25 08:33 WBC 14.0 H RBC 3.54 L Hgb 9.6 L Hct 29.0 L MCV 82 MCH 27.1 MCHC 33.1 RDW Std Deviation 41.3 Plt Count 182 Neut % (Auto) 76 Lymph % (Auto) 15 [place] % (Auto) 8 Eos % (Auto) 1 Baso % (Auto) 0 Neut # (Auto) 10.6 H Lymph # (Auto) 2.1 [place] # (Auto) 1.2 H Eos # (Auto) 0.1 Baso # (Auto) 0.0 Immature Gran # (Auto) 0.08 H Absolute Nucleated RBC 0.00 Immature Gran % 1 H Nucleated RBC % 0 Assessment & Plan Problem List (1) Normal labor and delivery: Status: Acute Assessment Comment Assessment comment: 24 hr pp Plan Comment Plan Comment: Discharge home with baby. Continue vitamins. Tylenol and ibuprofen for pain. Discussed danger signs symptoms and ER precautions. Discussed signs and symptoms of infection and parameters. And return in 4 to 5 weeks for visit Time Spent With Patient Time: Total time spent is greater than 50% in coordination of care (as documented) at patient's floor/unit and/or counseling patient:
[2025-05-06] MEDS: DOCUSATE SOD 100 MG CAPSULE PO (08:31)
--- NOTE | 2025-05-06 08:31 | PD.LDDS ---
DS: Providers Provider Date of admission: 05/04/25 18:00 Primary care physician: Physician No Primary/Family Admitting Provider: Ida Nielsen CNM Attending Provider on Admission: Jeison Ford MD Consults: 05/05/25 02:08 Referral Routine Comment: Attending Provider on DC: Ida Nielsen CNM Discharging Provider: Ida Nielsen CNM DS: Diagnosis Problem List Completed Was Problem List Reviewed/Reconciled?: Yes Summary/Hosp Course Brief History: 24-year-old 3 para 2 at 38 weeks 5 for complaints of contractions starting at 1600. Patient has been followed at [facility] [place] [facility] clinic for care. First visit at 24 weeks. Last period August 06, 2024. Estimated due date May 13, 2025. Patient denies any existing medical problems. Denies social habits. Denies surgery. Slow positive, antibody screen negative, RPR nonreactive, rubella immune, hepatitis B negative, hep C negative, HIV negative, GC and Chlamydia are negative. She had normal 1 hour. Her GBS is positive. Her NIPT was negative. Carrier screens negative. Denies leaking, bleeding. Peripartum Data Delivery Method: Normal Vaginal Delivery Episiotomy Description: None Laceration Description: no complications: none Time Spent with Patient Time attestation: Total time spent providing and/or coordinating discharge services: Exam Vital Signs Temp Pulse Resp BP Pulse Ox O2 Del Method 97.9 F 80 12 106/67 97 Room Air 05/06/25 03:46 05/06/25 03:46 05/06/25 03:46 05/06/25 03:46 05/06/25 03:46 05/06/25 03:46 Discharge Plan Plan Patient Disposition: HOME (Self Care) Patient condition on transfer: Stable Prescriptions/Referrals Prescriptions/Med Rec: No Action Vitamin 27 mg iron- 800 mcg tablet 1 tab PO QDAY Referrals: No Primary/Family,Physician [Primary Care Provider] Patient/Caregiver Discharge Instructions Discharge Activity: resume usual activities Print Language: Belgian Activity Restrictions/Additional Instructions: Discharge home with baby. Continue vitamins and iron. Tylenol ibuprofen for pain. Discussed danger signs symptoms and ER precautions. Discussed signs symptoms of infection with patient;. Return in 4 to 5 weeks visit Stand Alone Forms: [place] Award Info., Patient Portal Info Letter Discharge Order Discharge Orders: Discharge (Routine); Ordered 05/06/25 Ordered By: Ida Nielsen Planned Discharge Date 05/06/25
== END 2025-05-06 11:40 | disposition home or self-care (01) | DRG 807 ==
LOC: S4SX 16:13 → S4NX 05-05 04:40 → S4SX 05-06 06:26
PROVIDERS: Admitting Provider Advanced Practice Midwife; Visit Provider Obstetrics & Gynecology
DX: O34.211 Maternal care for low transverse scar from previous cesarean delivery (principal); Z37.0 Single live birth; Z3A.38 38 weeks gestation of pregnancy
CPT/HCPCS: 36415; 59025; 80307; 84112; 85025; 86780; 86850; 86900; 86901; J0290; J2590; J2795; J3490; J7050; J7120; S0191; A9270